=== PATIENT | male | born 1955 | race Caucasian/White ===

== ENCOUNTER 2017-03-22 06:04 | Day surgery (SDC) | payer OTHER ==
[~2017-03-22] VITALS: Ht 177.8 cm; Wt 83.3 kg
--- NOTE | ~2017-03-22 | DS ---
PATIENT'S NAME: JODY HUNTER [facility] AGE: 61 Y [address] ROOM: [address] [place], [place] [address] LOCATION: G3N ADMIT DATE: 03/22/2017 Discharge Summary DISCHARGE DATE: 03/23/2017 FAMILY PHYSICIAN: Domi Jimenez MD ATTENDING PHYSICIAN: Mariano Valdes HOSPITAL COURSE: This is an observation admission. Mr. Hunter is status post work injury. Healed right acetabulum, healed left sacral fractures, and healed pelvic fractures. Taken to the operating room. Fixation was removed. Also has cause-related back pain, neck pain, and radiating pain down the arms and legs. After the fixation was removed, the back was imaged. It showed a central disk herniation at 5-1 and adjacent degeneration at 4-5. Imaging of the cervical spine showed a left-sided disk herniation at cervical 5-6 and adjacent level degeneration much greater at C6-7 and then at 4-5. He has been on Xarelto prior to surgery. There was some oozing from the wounds immediately after surgery, not unexpected, even though he had been off the Xarelto for 3 days. On postop day 1, the wounds all intact. No bleeding. Ready for discharge to home. Dilaudid for pain. Can transition to usual [place] or Tylenol. Will continue on his Xarelto. Other medications include Tylenol and Neurontin. Will follow up with Dr. Valdes on April 10, 2017, at 11 a.m. we will request authorization for cervical decompression and fusion. This is caused related to his work injury. Will most likely also require, after good result from the cervical operation, a staged procedure on the low back. MARIANO VALDES MD DPM/elenal /[id number] d: 03/23/17 1811 t: 03/25/17 1419, DISCHARGE SUMMARY
--- NOTE | ~2017-03-22 | OR ---
PATIENT'S NAME: JODY HUNTER [facility] AGE: 61 Y [address] ROOM: [address] [place], [place] [address] LOCATION: [facility] ADMIT DATE: 03/22/2017 OR/Procedure Report DISCHARGE DATE: FAMILY PHYSICIAN: Domi Jimenez MD ATTENDING PHYSICIAN: Mariano Valdes SURGEON: Mariano Valdes MD VALET SERVICE ATTENDANT: DATE OF PROCEDURE: 03/22/2017 DIAGNOSES: 1. Healed sacral fracture. 2. Persisting reticular lumbosacral pain and low back pain. 3. Healed right acetabulum fracture. PROCEDURES PERFORMED: 1. Removal of sacral anterior spine instrumentation. 2. Removal of right acetabulum instrumentation. ANESTHESIA: General. INDICATION: Mr. Hunter is 2 months status post polytrauma. He had a work injury. Unstable sacral fractures with neurologic deficit. Pelvic fractures and right acetabulum fracture, all were fixed. At this time, the fractures have healed. Has persisting back and radicular leg pain, for removal of the right acetabulum instrumentation and the sacral anterior spine instrumentation. After instrumentations is removed take high quality MRI and CT scans and x-rays and labs. Also is having neck pain and radicular cervical pain, we have to image the cervical spine as well. Risks, benefits, and alternatives have been discussed. DESCRIPTION OF PROCEDURE: Mr. Oakes was taken to the operating 2 g of Kefzol given intravenously for prophylaxis. Placed on the operating table in a supine position. The anterior pelvis and both flanks were prepared with DuraPrep, draped sterilely. Fluoroscope was used to identify the axis of the right acetabulum screw. 1 cm incision was made. This was a Synthes 7.3 cannulated screw. The guidewire was then negotiated through the cannulation of the screw. The screw was easily removed. Osteotome was used to loosen the washer from healing callous, combination of curettes and Kochers was used to remove the washer. Bipolar was used to control bleeding. Incision closed with 3-0 Vicryl subcuticular sutures and rosemarie, then the sacral instrumentation was imaged. Two screws were present. The same technique would place the guidewire for the Synthes 7.3 screws were placed in each screw. Screws removed. The washer was removed. Hemostasis with bipolar. Subcutaneous tissues closed with 3-0 Vicryl. Skin was closed with rosemarie. Dry sterile dressings placed. Procedure was done without complication. PATIENT'S NAME: JODY HUNTER [facility] AGE: 61 Y [address] ROOM: [address] [address] LOCATION: [facility] ADMIT DATE: 03/22/2017 OR/Procedure Report DISCHARGE DATE: FAMILY PHYSICIAN: Domi Jimenez MD ATTENDING PHYSICIAN: Mariano Valdes MARIANO VALDES MD DPM/elenal /[id number] d: 03/22/17 1129 t: 03/25/17 1417, OPERATIVE SUMMARY
[~2017-03-22 06:04] MED LIST: HUMIBID LA (MU600 MG PO; LOVENOX 3030 MG/0.3 SUB-Q; MILK OF MA400 MG/5 M PO; NEURONTIN400 MG PO; NICODERM CQ1 EAC1 TOP; NORCO 5-325 TA1 EACH PO; SURFAK240 MG PO; TYLENOL325 MG PO; VALIUM5 MG PO; XARELTO20 MG PO
[2017-03-22 11:46] LABS: BASOPHIL # 0.1 K/uL (0.0-0.2); BASOPHIL % 0.6 %; EOSINOPHIL # 0.1 K/uL (0.0-0.5); EOSINOPHIL % 0.4 %; HEMATOCRIT 39.4 % (37.0-53.0); HEMOGLOBIN 13.1 g/dL (11.0-16.0); IMMATURE GRANULOCYTE # 0.1 K/uL (0.0-0.3); IMMATURE GRANULOCYTE % 0.6 %; LYMPHOCYTE # 0.9 K/uL (0.8-4.0); LYMPHOCYTE % 7.4 %; MCH 30.5 pg (27.0-34.0); MCHC 33.2 gm/dL (32.0-36.5); MCV 91.8 fl (83.0-98.0); MONOCYTE # 0.3 K/uL (0.0-1.0); MONOCYTE % 2.2 %; MPV 10.8 fl (9.4-12.4); NEUTROPHIL # (ANC) 10.7 K/uL (1.4-9.0); NEUTROPHIL % 88.8 %; NRBC % 0 /100WBC (0-0.00); PLATELET COUNT 261 K/uL (150-450); RDW-CV 13.6 % (11.9-14.6); WBC 12.1 K/uL (4.0-11.0)
[2017-03-22 11:49] LABS: RBC 4.29 M/uL (3.50-5.50)
--- NOTE | 2017-03-22 17:30 | NUR ---
Significant Event: pt alert and oriented. up to the floor at 1015. post op vitals completed. pt down for ct and exrays this afternoon after spinal off. pt takes norco for pain last at 1730. dressing to rt hip changed x 2. pt on blood thinner for previous dvt. dressing to lt hip has drainage on dressing but not leaking through. ice to asad hips. ambulates with 1 assist to the bathroom. needs ua. cup in the bathroom. leida fluids saline locked. in the room with pt. Follow up:
[2017-03-22 18:40] LABS: BILIRUBIN URINE NEGATIVE (NEGATIVE); BLOOD URINE NEGATIVE /UL (NEGATIVE); COLOR URINE YELLOW (YELLOW); GLUCOSE URINE NEGATIVE (NEGATIVE); KETONE URINE NEGATIVE (NEGATIVE); LEUKOCYTES URINE NEGATIVE /UL (NEGATIVE); NITRITE URINE NEGATIVE (NEGATIVE); PROTEIN URINE NEGATIVE (NEGATIVE); TURBIDITY URINE CLEAR (CLEAR); UROBILINOGEN URINE NORMAL (NORMAL)
--- NOTE | 2017-03-23 04:46 | NUR ---
Patient alert and oriented x3, very pleasant and cooperative, dressings to both right and left hip have been reinforced due to drainage, was here to see patient tonight and stated that there was bleeding noted on the post op xray, patient had pain issues and now has an order for oral dilaudid q 3 hours prn for pain percocet was d/c, patient has rested well
--- NOTE | 2017-03-23 11:05 | NUR ---
Introduced self/role to patient. Lives in [place] with his Radha. He couldn't think of any needs they would have. Has some DME already. He attempted to call his 's cell phone but it rang in his room so she didn't take it with her. Wrote my name on the marker board, will have nursing call me if they need anything. 1150 Called to his room. They had questions about dressing changes. Explained his nurse will go over all of that and probably even send some supplies home with them. At that time his nurse Gladis came in the room to do discharge instructions. No further needs or questions from me.
[2017-03-23] MEDS ORDERED: DILAUDID 2MG(HYD2 MG PO (11:41)
--- NOTE | 2017-03-23 13:42 | NUR ---
PT GIVEN DISCHARGE INSTRUCTIONS AND VOICES UNDERSTANDING. DRESSING CHANGES AND MEDICATIONS REVIEWED. DRESSINGS SENT HOME WITH PT AND ALSO SHOWERGUARDS FOR THE INCISION. ESCORTED TO THE FRONT DOOR BY MONIQUE SHERWOOD. AT PT'S SIDE.
== END 2017-03-23 13:15 | disposition disaster alternative care site (69) ==
LOC: GSDC 06:04 → G3N 06:04 → GSDC 03-23 13:15
PROVIDERS: Orthopaedic Surgery
PROC: 0QP404Z Removal of Internal Fixation Device from Right Acetabulum, Open Approach (ICD-10-PCS; principal; 2017-03-22)
PROC: 0QP104Z Removal of Internal Fixation Device from Sacrum, Open Approach (ICD-10-PCS; 2017-03-22)
DX: M54.5 Low back pain (principal); M19.019 Primary osteoarthritis, unspecified shoulder; F17.210 Nicotine dependence, cigarettes, uncomplicated; Z87.81 Personal history of (healed) traumatic fracture; Z79.891 Long term (current) use of opiate analgesic; Z79.899 Other long term (current) drug therapy
CPT/HCPCS: J0131; J0690; J1100; J1170; J2250; J2405; J7030; J7120